=== PATIENT | male | born 2000 | race Caucasian/White ===

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

== ENCOUNTER 2019-07-17 23:12 | Emergency (ER) | payer BC ==
--- NOTE | 2019-07-17 23:59 | ED ---
Palpitations / Dysrhythmia - HPI Summary HPI Summary: Patient with history of cold symptoms taking NyQuil and using his inhaler and nebulizer tonight complains of elevated heart rate 1 hour. Patient has history of asthma, states nebulizer will generally elevate heart rate, but not for this long. Patient also states fever up to 102, sore throat. All ER patient states he took NyQuil and nebulizer at 9:45 PM. Denies cough, ear pain , GAYLE, neck stiffness, CP, SOB, N/V/D, abdominal pain, change in urine, change in BM. Medical history is asthma, kidney stones. Denies cardiac history - History of Current Complaint Chief Complaint: EDDysrhythmPalp Time Seen by Provider: 07/17/19 23:57 Hx Obtained From: Patient - Sudden onset Onset/Duration: Sudden Onset Timing: Constant Severity Initially: Moderate Severity Currently: Mild Character: Fast Aggravating: Medication Alleviating: Nothing Associated Signs & Symptoms: Negative - Allergy/Home Medications Allergies/Adverse Reactions: Allergies Allergy/AdvReac Type Severity Reaction Status Date / Time ketorolac [From Toradol] AdvReac See Comment Verified 07/18/19 00:56 PMH/Surg Hx/FS Hx/Imm Hx Endocrine/Hematology History: Denies: Hx Anticoagulant Therapy Cardiovascular History: Denies: Hx Pacemaker/ICD Respiratory History: Reports: Hx Asthma History: Denies: Hx Dialysis Sensory History: Denies: Hx Eye Prosthesis Opthamlomology History: Denies: Hx Legally Blind EENT History: Denies: Hx Deafness Neurological History: Denies: Hx Developmental Delay - Surgical History Surgery Procedure, Year, and Place: Tubes in ears Infectious Disease History: No Infectious Disease History: Denies: Traveled Outside the [place] in Last 30 Days - Family History Known Family History: Positive: Hypertension, Diabetes - Social History Alcohol Use: None Substance Use Type: Reports: None Smoking Status (MU): Never Smoked Tobacco Review of Systems Positive: Fever Eyes: Negative Positive: Sore Throat Positive: Palpitations Respiratory: Negative Gastrointestinal: Negative Genitourinary: Negative Musculoskeletal: Negative Skin: Negative Neurological: Negative Psychological: Normal All Other Systems Reviewed And Are Negative: Yes Physical Exam - Summary Physical Exam Summary: Lung sounds clear to auscultation bilaterally. Tachycardia. Triage Information Reviewed: Yes Vital Signs On Initial Exam: Initial Vitals Temp Pulse Resp BP Pulse Ox 101.2 F 136 16 144/75 100 07/17/19 23:14 07/17/19 23:14 07/17/19 23:14 07/17/19 23:14 07/17/19 23:14 Vital Signs Reviewed: Yes Appearance: Positive: Well-Appearing Skin: Positive: Warm Head/Face: Positive: Normal Head/Face Inspection Eyes: Positive: Normal ENT: Positive: Pharyngeal erythema Neck: Positive: Supple Respiratory/Lung Sounds: Positive: Clear to Auscultation Cardiovascular: Positive: Tachycardia Abdomen Description: Positive: Nontender Musculoskeletal: Positive: Normal Neurological: Positive: Normal Psychiatric: Positive: Normal, Anxious - [place] Coma Scale Best Eye Response: 4 - Spontaneous Best Motor Response: 6 - Obeys Commands Best Verbal Response: 5 - Oriented Coma Scale Total: 15 Diagnostics - Vital Signs Vital Signs Temp Pulse Resp BP Pulse Ox 07/17/19 23:14 101.2 F 136 16 144/75 100 - Laboratory Result Diagrams: 07/18/19 00:01 07/18/19 00:01 Lab Statement: Any lab studies that have been ordered have been reviewed, and results considered in the medical decision making process. Course/Dx - Course Course Of Treatment: Patient with history of cold symptoms taking NyQuil and using his inhaler and nebulizer tonight complains of elevated heart rate 1 hour. Patient has history of asthma, states nebulizer will generally elevate heart rate, but not for this long. Patient also states fever up to 102, sore throat. All ER patient states he took NyQuil and nebulizer at 9:45 PM. Denies cough, ear pain, GAYLE, neck stiffness, CP, SOB, N/V/D, abdominal pain, change in urine, change in BM. Medical history is asthma, kidney stones. Denies cardiac history. Heart rate 136. Temperature 101.2. Vital signs otherwise within normal limits. Labs unremarkable. EKG sinus tachycardia, no prior on file. Chest x-ray unremarkable. Patient remains mildly tachycardic despite almost 2L NS. Patient remains febrile at 101 after ibuprofen 600mg. Tylenol 950 mg then administered, temperature 100 upon discharge and patient still mildly tachycardic. Discussed patient with Dr. Albright who agreed patient could be discharged as fever was coming down. - Diagnoses Provider Diagnoses: Fever, Viral syndrome, Tachycardia Discharge ED - Sign-Out/Discharge Documenting (check all that apply): Patient Departure Patient Received Moderate/Deep Sedation with Procedure: No - Discharge Plan Condition: Stable Disposition: HOME Patient Education Materials: Fever in Adults (ED), Tachycardia (ED) Referrals: No Primary Care Phys,NOPCP [Primary Care Provider] - Additional Instructions: Alternate ibuprofen 600 mg with Tylenol 650 mg every 3 hours for control of fever as needed. Drink plenty of fluids to maintain hydration. Return to the ED for any worsening symptoms. - Billing Disposition and Condition Condition: STABLE Disposition: Home
[2019-07-18] MEDS: NS 0.9% 1000 ML** 1,000 ML IV.FLUID IV ONE ×3 (00:17→00:51)
[2019-07-18 00:19] LABS: ABS Eosinophils 0.1 10^3/ul (0-0.6); ABS Lymphocytes 0.9 10^3/ul (1.0-4.8); ABS Monocytes 0.8 10^3/ul (0-0.8); ABS Neutrophils 9.6 10^3/ul (1.5-7.7); Eosinophil % 0.7 %; Hematocrit 46 % (42-52); Hemoglobin 15.6 g/dL (14.0-18.0); Lymphocyte % 8.2 %; Mean Corpuscular HGB Conc 34 g/dL (31-36); Mean Corpuscular Hemoglobin 31 pg (27-31); Mean Corpuscular Volume 91 fL (80-94); Mean Platelet Volume 8.2 fL (7.4-10.4); Platelet Count 215 10^3/uL (150-450); Red Blood Count 5.03 10^6 /uL (4.18-5.48); Red Cell Distribution Width 12 % (10-15); White Blood Count 11.5 10^3/uL (3.5-10.8)
[2019-07-18 00:30] LABS: Activated Partial Thrombo Time 31.9 seconds (26.0-38.0); INR 1.21 (0.82-1.09)
[2019-07-18] MEDS ORDERED: Ibuprofen TAB* 600 MG PO ONE (00:30)
[2019-07-18] MEDS ORDERED: NS 0.9% 1000 ML** 1,000 ML IV ONE (00:30)
[2019-07-18 00:31] LABS: Albumin 4.8 g/dL (3.2-5.2); Albumin/Globulin Ratio 1.7 (1-3); Calcium 9.6 mg/dL (8.6-10.3); Globulin 2.8 g/dL (2-4); Potassium 3.7 mmol/L (3.5-5.0); Total Bilirubin 0.6 mg/dL (0.2-1.0); Total Protein 7.6 g/dL (6.4-8.9)
[2019-07-18 00:52] LABS: Influenza A Molecular NEGATIVE (Negative); Influenza B Molecular NEGATIVE (Negative)
[2019-07-18 01:19] LABS: Rapid Strep Molecular Negative (Negative)
[2019-07-18] MEDS ORDERED: Acetaminophen TAB* 325 MG PO ONE (01:45)
[2019-07-18 02:44] LABS: Urine Appearance Clear; Urine Bilirubin Negative (Negative); Urine Blood Negative (Negative); Urine Color Straw; Urine Glucose Negative (Negative); Urine Ketones Negative (Negative); Urine Nitrite Negative (Negative); Urine Protein Negative (Negative); Urine Urobilinogen Negative (Negative)
[2019-07-18 02:46] VITALS: BP 105/67
== END 2019-07-18 02:59 | disposition home or self-care (01) ==
LOC: ED 23:12
DX: B34.9 Viral infection, unspecified (principal); R50.9 Fever, unspecified; R00.0 Tachycardia, unspecified; Z88.5 Allergy status to narcotic agent
CPT/HCPCS: 36415; 71045; 80053; 81003; 83605; 84484; 85025; 85610; 85730; 87040; 87651; 93005; 96360; 96361; 99283; A9270-GY